=== PATIENT | female | born 1990 | race Caucasian/White ===

== ENCOUNTER 2018-11-21 16:11 | Emergency (ER) | payer BC ==
[2018-11-21 16:34] VITALS: BP 128/91; PULSE 99
[2018-11-21] MEDS ORDERED: methylPREDNISolone Sodium Succinate 125 MG/2 ML SDV IM ONE (16:41)
--- NOTE | 2018-11-21 16:46 | EDM.PDOC ---
ED HPI GENERAL MEDICAL PROBLEM - General Chief Complaint: Allergic Reaction Stated Complaint: DIZZY, HEAVY CHEST Time Seen by Provider: 11/21/18 16:16 Source of Information: Reports: Patient History Limitations: Reports: No Limitations - History of Present Illness INITIAL COMMENTS - FREE TEXT/NARRATIVE: states she went to breakfast this morning; didn't really have any issues But then she started to feel "not right"; her chest felt heavy and started to have tingling to her tongue. She didn't know if she was freaking her self out or not; Continued to get ready for work. Her chest still felt heavy; she took Benadryl and came into the ER for evaluation. Duration: Hour(s): (3) Location: Reports: Face, Chest Quality: Reports: Pressure Improves with: Reports: None Worsens with: Reports: None Chest Pain Score (Numeric/FACES): 3 - Related Data Allergies Allergy/AdvReac Type Severity Reaction Status Date / Time Fish Containing Products Allergy Swelling Verified 05/01/18 19:50 Iodinated Contrast- Oral and Allergy Swelling Verified 05/01/18 19:50 IV Dye [Iodinated Contrast Media - IV Dye] Home Meds: Home Meds Ibuprofen [Motrin] 200 mg PO QID PRN 12/03/14 [History] Acetaminophen/HYDROcodone [[place] 325-5 MG] 1 tab PO Q6H PRN 05/01/18 [History] Clindamycin HCl mg PO TID 05/01/18 [History] diphenhydrAMINE [Benadryl] 1 tab PO ASDIRECTED PRN 05/01/18 [History] Past Medical History - Past Health History Medical/Surgical History: Denies Medical/Surgical History Cardiovascular History: Reports: Arrhythmia - Infectious Disease History Infectious Disease History: Reports: Chicken Pox - Past Surgical History HEENT Surgical History: Reports: Myringotomy w Tube(s), Tonsillectomy Social & Family History - Caffeine Use Caffeine Use: Reports: Coffee - Living Situation & Occupation Living situation: Reports: with Significant Other Occupation: Employed ED ROS ALLERGIC REACTION - Review of Systems Review Of Systems: See Below Constitutional: Reports: No Symptoms HEENT: Reports: Other (tongue tingling) Respiratory: Reports: Other ("heavy chest") Cardiovascular: Reports: No Symptoms Endocrine: Reports: No Symptoms GI/Abdominal: Reports: No Symptoms : Reports: No Symptoms Musculoskeletal: Reports: No Symptoms Skin: Reports: Other (no hives, welts. ) Neurological: Reports: No Symptoms Psychiatric: Reports: No Symptoms ED EXAM GENERAL NO PERIP PULSE - Physical Exam Exam: See Below Exam Limited By: No Limitations General Appearance: Alert, WD/WN, No Apparent Distress Eye Exam: Bilateral Eye: EOMI, PERRL Nose: Normal Inspection Throat/Mouth: Normal Inspection, Normal Lips, Normal Teeth, Normal Gums, Normal Oropharynx, Normal Voice, No Airway Compromise Head: Atraumatic, Normocephalic Neck: Normal Inspection, Supple, Non-Tender, Full Range of Motion Respiratory/Chest: No Respiratory Distress, Lungs Clear, Normal Breath Sounds Cardiovascular: Regular Rate, Rhythm GI/Abdominal: Normal Bowel Sounds, Soft, Non-Tender Back Exam: Full Range of Motion Extremities: Normal Inspection, Normal Range of Motion, Non-Tender Neurological: Alert, Oriented, CN II-XII Intact, Normal Cognition, Normal Gait Psychiatric: Normal Affect, Normal Mood Skin Exam: Warm, Dry, Intact, Normal Color, No Rash Course - Vital Signs Last Recorded V/S: Last Vital Signs Temp 96.4 F 11/21/18 16:49 Pulse 99 11/21/18 16:49 Resp 17 11/21/18 16:49 BP 128/91 H 11/21/18 16:49 Pulse Ox 99 11/21/18 16:49 - Orders/Labs/Meds Meds: Medications Discontinued Medications Generic Name Dose Route Start Last Admin Trade Name Freq PRN Reason Stop Dose Admin Methylprednisolone Sodium Succinate 125 mg 11/21/18 16:41 11/21/18 16:46 Solu-Medrol IM 11/21/18 16:42 125 mg ONETIME ONE Administration - Re-Assessments/Exams Free Text/Narrative Re-Assessment/Exam: 11/21/18 18:23 she was feeling much better; up and walking around. Feels comfortable for discharge. Departure - Departure Time of Disposition: 17:45 Disposition: Home, Self-Care 01 Condition: Good Clinical Impression: Allergic reaction - Discharge Information *PRESCRIPTION DRUG MONITORING PROGRAM REVIEWED*: Not Applicable *COPY OF PRESCRIPTION DRUG MONITORING REPORT IN PATIENT CAROLINE: Not Applicable Instructions: Anaphylactic Reaction, Adult Referrals: PCP,None [Primary Care Provider] - Forms: ED Department Discharge Additional Instructions: Continue to hydrate Benadryl 25-50 mg can be taken every 6-8 hours for itching, lips or tongue tingling, throat fullness. If you feel your symptoms are getting worse, please return to ER Follow up with your doctor. Call with questions. - Problem List & Annotations (1) Allergic reaction SNOMED Code(s): 013484305 Code(s): T78.40XA - ALLERGY, UNSPECIFIED, INITIAL ENCOUNTER Status: Acute Priority: Low Qualifiers: Encounter type: initial encounter Qualified Code(s): T78.40XA - Allergy, unspecified, initial encounter - Problem List Review Problem List Initiated/Reviewed/Updated: Yes
== END 2018-11-21 18:05 | disposition home or self-care (01) ==
LOC: JP.ED 16:11
DX: T78.40XA Allergy, unspecified, initial encounter (principal); Z91.041 Radiographic dye allergy status; Z91.013 Allergy to seafood; Z79.899 Other long term (current) drug therapy
CPT/HCPCS: 96372; 99284; J2930

== ENCOUNTER 2020-08-18 18:45 | Emergency (ER) | payer BC ==
--- NOTE | 2020-08-18 19:29 | EDM.PDOC ---
ED HPI GENERAL MEDICAL PROBLEM - General Chief Complaint: Genitourinary Problem Stated Complaint: UTI Time Seen by Provider: 08/18/20 19:15 Source of Information: Reports: Patient History Limitations: Reports: No Limitations - History of Present Illness INITIAL COMMENTS - FREE TEXT/NARRATIVE: 30-year-old female with a history of UTIs in the past, arrives with 6 hours of dysuria, urgency, and now has developed hematuria. No fevers or chills, no back pain. Onset: Sudden (Symptoms started fairly suddenly 6 hours ago) Associated Symptoms: Reports: No Other Symptoms - Related Data Allergies Allergy/AdvReac Type Severity Reaction Status Date / Time Fish Containing Products Allergy Anaphylactic Verified 08/18/20 19:10 Shock Iodinated Contrast Media Allergy Anaphylactic Verified 08/18/20 19:10 [Iodinated Contrast Media - Shock IV Dye] shellfish derived Allergy Anaphylactic Verified 08/18/20 19:10 Shock Home Meds: Home Meds Ibuprofen [Motrin] 200 mg PO QID PRN 12/03/14 [History] diphenhydrAMINE [Benadryl] 1 tab PO ASDIRECTED PRN 05/01/18 [History] Past Medical History - Past Health History Medical/Surgical History: Denies Medical/Surgical History Cardiovascular History: Reports: Arrhythmia Genitourinary History: Reports: Pyelonephritis, UTI, Recurrent Musculoskeletal History: Reports: Fracture, Other (See Below) Other Musculoskeletal History: right foot fractures Neurological History: Reports: Concussion Dermatologic History: Reports: Other (See Below) Other Dermatologic History: dry skin in the winter - Infectious Disease History Infectious Disease History: Reports: Chicken Pox - Past Surgical History HEENT Surgical History: Reports: Myringotomy w Tube(s), Tonsillectomy Social & Family History - Tobacco Use Tobacco Use Status *Q: Current Every Day Tobacco User Years of Tobacco use: 12 Packs/Tins Daily: 0.2 - Caffeine Use Caffeine Use: Reports: Coffee - Recreational Drug Use Recreational Drug Use: No - Living Situation & Occupation Living situation: Reports: with Significant Other Occupation: Employed ED ROS GENERAL - Review of Systems Review Of Systems: See Below Constitutional: Denies: Fever, Chills Respiratory: Denies: Shortness of Breath Cardiovascular: Denies: Chest Pain GI/Abdominal: Denies: Nausea, Vomiting Neurological: Reports: No Symptoms Psychiatric: Reports: No Symptoms ED EXAM, RENAL/ - Physical Exam Exam: See Below Exam Limited By: No Limitations General Appearance: Alert, No Apparent Distress Head: Atraumatic Respiratory/Chest: No Respiratory Distress, Lungs Clear Cardiovascular: Regular Rate, Rhythm Back Exam: No: CVA Tenderness (R), CVA Tenderness (L) Neurological: Alert, Oriented Psychiatric: Normal Affect, Normal Mood Skin Exam: Warm, Dry Course - Vital Signs Last Recorded V/S: Last Vital Signs Temp 97.8 F 08/18/20 19:13 Pulse 76 08/18/20 19:13 Resp 14 08/18/20 19:13 BP 143/86 H 08/18/20 19:13 Pulse Ox 100 08/18/20 19:13 - Orders/Labs/Meds Orders: Active Orders 24 hr Category Date Time Status CULTURE URINE [RM] Stat Lab 08/18/20 19:45 Received Labs: Laboratory Tests 08/18/20 Range/Units 19:26 Urine Color Yellow (YELLOW) Urine Appearance Slightly cloudy A (CLEAR) Urine pH 5.5 (5.0-8.0) Ur Specific [place] >= 1.030 (1.008-1.030) Urine Protein Negative (NEGATIVE) mg/dL Urine Glucose (UA) Negative (NEGATIVE) mg/dL Urine Ketones Negative (NEGATIVE) mg/dL Urine Occult Blood Moderate H (NEGATIVE) Urine Nitrite Negative (NEGATIVE) Urine Bilirubin Negative (NEGATIVE) Urine Urobilinogen 0.2 (0.2-1.0) EU/dL Ur Leukocyte Esterase Small H (NEGATIVE) Urine RBC 10-20 H (0-5) Urine WBC 10-20 H (0-5) Ur Epithelial Cells Few Amorphous Sediment Occasional Urine Bacteria Few Urine Mucus Occasional - Re-Assessments/Exams Free Text/Narrative Re-Assessment/Exam: 08/18/20 19:34 UA was obtained. Patient claims that Macrobid has worked well for her in the past. 08/18/20 19:42 UA was positive, urine culture initiated. Patient will be placed on 7 days of Macrobid and can return if worsening despite treatment. Departure - Departure Time of Disposition: 19:49 Disposition: Home, Self-Care 01 Clinical Impression: UTI, Urinary tract infectious disease - Discharge Information Instructions: Urinary Tract Infection, Adult Referrals: PCP,None [Primary Care Provider] - Forms: ED Department Discharge Care Plan Goals: Take Macrobid twice daily for 7 days, drink plenty of fluids and continue activity and diet as tolerated. Consider rechecking next week if not improving satisfactorily, or return anytime if worsening such as vomiting the medication, increased pain or persistent fever. Sepsis Event Note (ED) - Evaluation Sepsis Screening Result: No Definite Risk - Focused Exam Vital Signs: Vital Signs Temp Pulse Resp BP Pulse Ox 08/18/20 19:13 97.8 F 76 14 143/86 H 100 08/18/20 19:12 97.8 F 76 14 143/86 H 100 - My Orders Last 24 Hours: My Active Orders 08/18/20 19:45 CULTURE URINE [RM] Stat - Assessment/Plan Last 24 Hours: My Active Orders 08/18/20 19:45 CULTURE URINE [RM] Stat
[2020-08-18 21:24] VITALS: BP 143/86; PULSE 76
== END 2020-08-18 19:54 | disposition home or self-care (01) ==
LOC: JP.ED 18:45
DX: N39.0 Urinary tract infection, site not specified (principal); Z91.013 Allergy to seafood; Z91.041 Radiographic dye allergy status; Z72.0 Tobacco use
CPT/HCPCS: 81001; 87086; 87088; 87186; 99283

== ENCOUNTER 2020-12-17 03:12 | Emergency (ER) | payer MEDICAID ==
[2020-12-17 03:26] VITALS: BP 123/77; PULSE 66
[2020-12-17] MEDS ORDERED: Lidocaine 5% 700 MG Patch TRDERM ONE (03:39)
[2020-12-17] MEDS ORDERED: Methocarbamol 500 MG Tab PO ONE (03:39)
--- NOTE | 2020-12-17 03:52 | EDM.PDOC ---
ED HPI GENERAL MEDICAL PROBLEM - General Chief Complaint: Back Pain or Injury Stated Complaint: BACK PAIN Time Seen by Provider: 12/17/20 03:39 Source of Information: Reports: Patient History Limitations: Reports: No Limitations - History of Present Illness INITIAL COMMENTS - FREE TEXT/NARRATIVE: Mary is a 30-year-old female presenting to the ED for evaluation of upper back pain. Her symptoms started several days ago after she tried to get up from sitting on the couch. She had acute onset of predominantly right-sided thoracic back pain radiating around to the right lateral and anterior chest. The pain increased with deep inspiration or movement especially of the right upper extremity. 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 She also denies any significant stress right now. The patient has had no fever or chills, cough or shortness of breath. The chest pain was as described above and is a bandlike pain across the lower right chest that worsens with deep inspiration or movement of the upper extremity. The patient did have this 1 time before but thought that she had just pulled a muscle and pushed through it with improvement over a couple of days. She has tried icy hot patches, ibuprofen and a hot bath which only seem to worsen her symptoms. The patient is not aware of any rash or vesicles forming on her back or chest. - Related Data Allergies Allergy/AdvReac Type Severity Reaction Status Date / Time Fish Containing Products Allergy Anaphylactic Verified 12/17/20 03:34 Shock Iodinated Contrast Media Allergy Anaphylactic Verified 12/17/20 03:34 [Iodinated Contrast Media - Shock IV Dye] shellfish derived Allergy Anaphylactic Verified 12/17/20 03:34 Shock Home Meds: Home Meds Ibuprofen [Motrin] 200 mg PO QID PRN 12/03/14 [History] diphenhydrAMINE [Benadryl] 1 tab PO ASDIRECTED PRN 05/01/18 [History] methocarbamoL [Methocarbamol] 750 mg PO QID PRN #28 tablet 12/17/20 [Rx] Past Medical History - Past Health History Medical/Surgical History: Denies Medical/Surgical History Cardiovascular History: Reports: Arrhythmia Genitourinary History: Reports: Pyelonephritis, UTI, Recurrent Musculoskeletal History: Reports: Fracture, Other (See Below) Other Musculoskeletal History: right foot fractures Neurological History: Reports: Concussion Dermatologic History: Reports: Other (See Below) Other Dermatologic History: dry skin in the winter - Infectious Disease History Infectious Disease History: Reports: Chicken Pox - Past Surgical History HEENT Surgical History: Reports: Myringotomy w Tube(s), Tonsillectomy Social & Family History - Tobacco Use Tobacco Use Status *Q: Never Tobacco User - Caffeine Use Caffeine Use: Reports: Coffee - Living Situation & Occupation Living situation: Reports: with Significant Other Occupation: Employed ED ROS GENERAL - Review of Systems Review Of Systems: See Below Constitutional: Reports: No Symptoms HEENT: Reports: No Symptoms Respiratory: Reports: Shortness of Breath (Secondary to pain in the chest) Cardiovascular: Reports: Chest Pain (Right-sided chest pain originating from the rhomboids and trapezius muscle extending lateral across the lower right chest to the anterior chest below the breast.) Endocrine: Reports: No Symptoms GI/Abdominal: Reports: No Symptoms : Reports: No Symptoms Musculoskeletal: Reports: Back Pain (Upper back pain especially involving the right sided rhomboids and right trapezius muscle.) Skin: Reports: No Symptoms Neurological: Reports: No Symptoms Psychiatric: Reports: No Symptoms Hematologic/Lymphatic: Reports: No Symptoms Immunologic: Reports: No Symptoms ED EXAM, UPPER BACK/NECK PAIN - Physical Exam Exam: See Below Exam Limited By: No Limitations General Appearance: Alert, Anxious, Mild Distress Head Exam: Atraumatic, Normocephalic Neck Exam: Non-Tender, Full Range of Motion, Normal Alignment, Normal Inspection Cardiovascular/Respiratory: Regular Rate, Rhythm, Normal Breath Sounds, No Respiratory Distress Back Exam: Muscle Spasm (Significant spasm and tenderness to palpation over the right trapezius and rhomboid muscles. ) Extremities: Normal Inspection, Normal Range of Motion, Other (Right-sided chest and back pain increased with abduction of the shoulder, extension down flexion of the shoulder against resistance. The patient feels the best with internal rotation of the shoulder releasing the pressure on the trapezius muscle and rhomboid) Neurologic: No Motor/Sensory Deficits, Alert, Normal Mood/Affect, Oriented x 3 Psychiatric: Normal Affect, Normal Mood Skin Exam: Normal Color, Warm/Dry. No: Rash Lymphatic: No Adenopathy Course - Vital Signs Last Recorded V/S: Last Vital Signs Temp 36.6 C 12/17/20 03:25 Pulse 66 12/17/20 03:25 Resp 16 12/17/20 03:25 BP 123/77 12/17/20 03:25 Pulse Ox 99 12/17/20 03:25 - Orders/Labs/Meds Orders: Active Orders 24 hr Category Date Time Status Ang Chest [CT] Stat Exams 12/17/20 04:17 Stop Req Labs: Laboratory Tests 12/17/20 12/17/20 Range/Units 03:50 03:50 WBC 8.3 (4.5-11.0) K/uL RBC 4.73 (3.30-5.50) M/uL Hgb 14.8 (12.0-15.0) g/dL Hct 43.8 (36.0-48.0) % MCV 93 (80-98) fL MCH 31 (27-31) pg MCHC 34 (32-36) % Plt Count 397 (150-400) K/uL Neut % (Auto) 56.0 (36-66) % Lymph % (Auto) 32.3 (24-44) % White % (Auto) 8.3 H (2-6) % Eos % (Auto) 2.8 (2-4) % Baso % (Auto) 0.6 (0-1) % D-Dimer, Quantitative 608.83 H (0.0-500.0) ng/mL Meds: Medications Discontinued Medications Generic Name Dose Route Start Last Admin Trade Name Freq PRN Reason Stop Dose Admin Lidocaine 700 mg 12/17/20 03:39 12/17/20 03:47 Lidocaine 5% 700 Mg Patch TRDERM 12/17/20 03:40 700 mg ONETIME ONE Administration Methocarbamol 1,000 mg 12/17/20 03:39 12/17/20 03:47 Methocarbamol 500 Mg Tab PO 12/17/20 03:40 1,000 mg ONETIME ONE Administration Sodium Chloride 10 ml 12/17/20 04:17 Sodium Chloride 0.9% 10 Ml Syringe FLUSH ASDIRECTED PRN Keep Vein Open - Re-Assessments/Exams Free Text/Narrative Re-Assessment/Exam: 12/17/20 04:04 I did perform some trigger point pressure over the inferior border of the rhomboid and trapezius muscle trying to relieve some of the spasm. In addition, the patient was given methocarbamol 1000 mg by mouth and a Lidoderm patch was applied over this area to help reduce the pain. Labs were obtained including a CBC and a D-dimer. I think there is a low probability of the pain is arising from either a pneumonia or a pulmonary embolism, however, I do think it warrants making sure. 12/17/20 04:30 I reviewed the patient's labs showing a normal CBC but her D- dimer was elevated at 608. Unfortunately, the patient has severe IV contrast allergy and even with premedication had a significant reaction the last time she had imaging. I am convinced that her pain is rises from the muscles of the chest wall, trapezius, and rhomboid rather than intrathoracic as the patient is now comfortable and not having any shortness of breath. We have come to an agreement that the patient will be very diligent watching for any increasing shortness of breath or worsening in her pain over the next couple of days. If this occurs then she should return and we will pursue premedication, CT chest angiogram, and close observation following it with treatment of any reaction she may have. The patient understands the risks and benefits of this approach. In the meantime, we will continue to treat her with methocarbamol 750 mg 4 times daily as needed for muscle spasm and pain as well as Salonpas 4% lidocaine patches every 12 hours over the area of the maximum pain. I did show her significant other pressure point shiatsu massage of the rhomboid muscle and trapezius muscle to help relieve spasm. The patient may continue to do ice alternating with heat and pressure massage with stretching as I demonstrated to her. Indications to return to the ED as discussed above and patient is discharged in satisfactory condition. Departure - Departure Time of Disposition: 04:33 Disposition: Home, Self-Care 01 Clinical Impression: Trapezius muscle spasm, Rhomboid muscle pain - Discharge Information Prescriptions: methocarbamoL [Methocarbamol] 750 mg PO QID PRN #28 tablet PRN Reason: Muscle Spasm - Painful Instructions: Muscle Pain, Adult Referrals: PCP,None [Primary Care Provider] - Forms: ED Department Discharge Care Plan Goals: Please use the methocarbamol 750 mg up to 4 times a day for treatment of the spasm in your back and chest. I would also recommend using Salonpas 4% lidocaine patches over the area of maximum tenderness every 12 hours as needed. In addition, I think he would benefit from pressure-point shiatsu massage as shown and gentle stretching with your right hand on your left shoulder. Should you develop any worsening of chest pain or worsening of shortness of breath please return to the ED for reevaluation. Sepsis Event Note (ED) - Evaluation Sepsis Screening Result: No Definite Risk - Focused Exam Vital Signs: Vital Signs Temp Pulse Resp BP Pulse Ox 12/17/20 03:25 36.6 C 66 16 123/77 99 - Problem List & Annotations (1) Rhomboid muscle pain SNOMED Code(s): 14926009 Code(s): M79.18 - [place]AL[place], OTHER SITE Status: Acute Priority: Medium Current Visit: Yes (2) Trapezius muscle spasm SNOMED Code(s): 718424419115 Code(s): M62.838 - OTHER MUSCLE SPASM Status: Acute Priority: Medium Current Visit: Yes - Problem List Review Problem List Initiated/Reviewed/Updated: Yes - My Orders Last 24 Hours: My Active Orders 12/17/20 04:17 Ang Chest [CT] Stat - Assessment/Plan Last 24 Hours: My Active Orders 12/17/20 04:17 Ang Chest [CT] Stat
[2020-12-17] MEDS ORDERED: Sodium Chloride 0.9% 10 ML Syringe FLUSH PRN (04:17)
== END 2020-12-17 04:59 | disposition home or self-care (01) ==
LOC: JP.ED 03:12
DX: M62.830 Muscle spasm of back (principal); Z79.1 Long term (current) use of non-steroidal anti-inflammatories (NSAID)
CPT/HCPCS: 36415; 85025; 85379; 99283; A9270-GY

== ENCOUNTER 2020-12-20 01:27 | Emergency (ER) | payer MEDICAID ==
[2020-12-20 01:44] VITALS: BP 112/70; PULSE 67
--- NOTE | 2020-12-20 02:17 | EDM.PDOC ---
ED HPI GENERAL MEDICAL PROBLEM - General Chief Complaint: Back Pain or Injury Stated Complaint: BACK PAIN Time Seen by Provider: 12/20/20 02:18 Source of Information: Reports: Patient History Limitations: Reports: No Limitations - History of Present Illness INITIAL COMMENTS - FREE TEXT/NARRATIVE: Pt arrived after having a very severe muscle spasm in the rt shoulder and post cervical area. She did end up taking 2 of the muscle relaxants and they are now working and she is feeling much better. She has not had a definite injury but she has been working alot of hours and doing work that could cause some overuse pain Onset: Today, Sudden Duration: Hour(s): Location: Reports: Neck, Back, Other (pt is having spasm by the rt shoulder and going around. 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 (see below) Other Treatments SILK SCREEN PROCESSOR: robaxin Upper Back Pain Score (Numeric/FACES): 7 - Related Data Allergies Allergy/AdvReac Type Severity Reaction Status Date / Time Fish Containing Products Allergy Anaphylactic Verified 12/20/20 01:40 Shock Iodinated Contrast Media Allergy Anaphylactic Verified 12/20/20 01:40 [Iodinated Contrast Media - Shock IV Dye] shellfish derived Allergy Anaphylactic Verified 12/20/20 01:40 Shock Home Meds: Home Meds Ibuprofen [Motrin] 200 mg PO QID PRN 12/03/14 [History] diphenhydrAMINE [Benadryl] 1 tab PO ASDIRECTED PRN 05/01/18 [History] methocarbamoL [Methocarbamol] 750 mg PO QID PRN #28 tablet 12/17/20 [Rx] Past Medical History - Past Health History Medical/Surgical History: Denies Medical/Surgical History Cardiovascular History: Reports: Arrhythmia Genitourinary History: Reports: Pyelonephritis, UTI, Recurrent Musculoskeletal History: Reports: Fracture, Other (See Below) Other Musculoskeletal History: right foot fractures Neurological History: Reports: Concussion Dermatologic History: Reports: Other (See Below) Other Dermatologic History: dry skin in the winter - Infectious Disease History Infectious Disease History: Reports: Chicken Pox - Past Surgical History HEENT Surgical History: Reports: Myringotomy w Tube(s), Tonsillectomy Social & Family History - Tobacco Use Tobacco Use Status *Q: Current Some Day Tobacco User Years of Tobacco use: 16 Packs/Tins Daily: 0.5 - Caffeine Use Caffeine Use: Reports: Coffee - Recreational Drug Use Recreational Drug Use: No - Living Situation & Occupation Living situation: Reports: with Significant Other Occupation: Employed ED ROS GENERAL - Review of Systems Review Of Systems: See Below Constitutional: Reports: No Symptoms HEENT: Reports: No Symptoms Respiratory: Reports: No Symptoms Cardiovascular: Reports: No Symptoms Endocrine: Reports: No Symptoms GI/Abdominal: Reports: No Symptoms Musculoskeletal: Reports: Shoulder Pain (post cervical pain), Other ED EXAM, UPPER BACK/NECK PAIN - Physical Exam Exam: See Below Text/Narrative:: Pt arrived with pain in the rt shoulder and rt post cervical area. She had taken 2 of the muscle relaxants at home and by the time she got here she was much better. Exam Limited By: No Limitations General Appearance: Alert, Anxious, Mild Distress Ears Exam: Normal External Exam Nose Exam: Normal Inspection Throat/Mouth Exam: Normal Inspection Head Exam: Atraumatic Neck Exam: Paraspinous Muscle Tender Cardiovascular/Respiratory: Regular Rate, Rhythm Back Exam: Paraspinal Tenderness, Other ( this is by the rt shoulder. ) Extremities: Normal Inspection Course - Vital Signs Last Recorded V/S: Last Vital Signs Temp 36.2 C 12/20/20 01:37 Pulse 67 12/20/20 01:37 Resp 16 12/20/20 01:37 BP 112/70 12/20/20 01:37 Pulse Ox 100 12/20/20 01:37 Departure - Departure Time of Disposition: 02:13 Disposition: Home, Self-Care 01 Condition: Fair Clinical Impression: Muscle spasm of right shoulder - Discharge Information Referrals: PCP,None [Primary Care Provider] - Forms: ED Department Discharge Care Plan Goals: methocarbnol should be used regularly for the next 4-5 days, no work for the rest of this week, rigorously use ice to the area, If persistent pain and spasm consider physical therapy. Sepsis Event Note (ED) - Evaluation Sepsis Screening Result: No Definite Risk - Focused Exam Vital Signs: Vital Signs Temp Pulse Resp BP Pulse Ox 12/20/20 01:37 36.2 C 67 16 112/70 100
== END 2020-12-20 02:27 | disposition home or self-care (01) ==
LOC: JP.ED 01:27
DX: M62.830 Muscle spasm of back (principal); Z91.013 Allergy to seafood; Z91.041 Radiographic dye allergy status; Z72.0 Tobacco use
CPT/HCPCS: 99282; 99283

== ENCOUNTER 2021-09-20 01:53 | Emergency (ER) | payer MEDICAID ==
[2021-09-20 02:09] VITALS: BP 144/82; PULSE 75
== END 2021-09-20 02:45 | disposition home or self-care (01) ==
LOC: JP.ED 01:53
DX: N30.01 Acute cystitis with hematuria (principal); Z91.013 Allergy to seafood; Z91.041 Radiographic dye allergy status; Z72.0 Tobacco use
CPT/HCPCS: 81001; 87086; 87088; 87186; 99282; 99283

== ENCOUNTER 2024-03-15 21:20 | Emergency (ER) | payer SELFPAY ==
[2024-03-15 21:30] VITALS: BP 146/92; PULSE 86
[2024-03-15] MEDS: predniSONE 20 MG Tab PO ONE (22:08)
[2024-03-15] MEDS: Cetirizine 10 MG Tab PO STA (22:08)
== END 2024-03-15 22:46 | disposition home or self-care (01) ==
LOC: JP.ED 21:20
DX: T78.40XA Allergy, unspecified, initial encounter (principal); Z91.013 Allergy to seafood; Z91.041 Radiographic dye allergy status; Z88.8 Allergy status to other drugs, medicaments and biological substances
CPT/HCPCS: 99283; A9270; J7512